=== PATIENT | male | born 1945 | race Caucasian/White ===

== ENCOUNTER → 2016-12-22 | Outpatient (CLI) | payer OTHER ==
[~2016-12-22] MED LIST: DEPO METHYLPREDNISOLONE 40 MG/ML SDV ONE; DEPO METHYLPREDNISOLONE 80 MG/ML SDV ONE; IOPAMIDOL (ISOVUE 370) 100 ML BTL IV ONE; LIDOCAINE 1% 300 MG/30 ML SDV ONE; ROPIVACAINE HCL 150 MG/30 ML INJ ONE
== END ==
LOC: FIMAGING 10:16
PROVIDERS: ATTEND Orthopaedic Surgery
PROC: 3E0U3BZ Introduction of Anesthetic Agent into Joints, Percutaneous Approach (ICD-10-PCS; principal; 2016-12-22)
PROC: 3E0U33Z Introduction of Anti-inflammatory into Joints, Percutaneous Approach (ICD-10-PCS; principal; 2016-12-22)
DX: M16.11 Unilateral primary osteoarthritis, right hip (principal)
CPT/HCPCS: 20610; J1030; J2795; Q9967; J1040

== ENCOUNTER 2017-04-11 10:07 | Inpatient (IN) | payer OTHER ==
--- NOTE | 2017-04-11 07:12 | PDHPUP ---
History & Physical Update H&P update statement: This history and physical update is based on an assessment of the patient which was completed after admission or registration (within 24 hours), but prior to the surgery/procedure. H&P update: H&P reviewed & patient examined, no change in patient's condition since H&P completed
[~2017-04-11 10:07] MED LIST changes: +BUPI/epINEPH/KETOROLAC IU ONE; -DEPO METHYLPREDNISOLONE 40 MG/ML SDV ONE; -DEPO METHYLPREDNISOLONE 80 MG/ML SDV ONE; -IOPAMIDOL (ISOVUE 370) 100 ML BTL IV ONE; -LIDOCAINE 1% 300 MG/30 ML SDV ONE; +ROPIVACAINE 0.2% 80 MG, EPINEPHrine 0.2 MG, KETOROLAC TROMETHAMINE 30 MG in SYRINGE 0 ML IU ONE; -ROPIVACAINE HCL 150 MG/30 ML INJ ONE; +TRANEXAMIC ACID 3,000 MG in NS (SYRINGE) 50 ML IRR ONE; +TRANEXAMIC ACID 3,000 MG/50 ML BAG IRR ONE
[2017-04-11] MEDS ORDERED: LIDOCAINE 1% 2 ML INJ ID PRN (10:17)
[2017-04-11] MEDS ORDERED: ACETAMINOPHEN 325 MG TAB PO ONE (10:17)
[2017-04-11] MEDS ORDERED: FAMOTIDINE 20 MG TAB PO ONE (10:17)
[2017-04-11] MEDS ORDERED: DEXAMETHASONE 4 MG/ML VIAL IVP ONE (10:17)
[2017-04-11] MEDS ORDERED: LR 1,000 ML IV ONE (10:17)
[2017-04-11] MEDS ORDERED: ceFAZolin 2 GM/SWFI 2 GM/20 ML SYR IVP ONE (10:17)
--- NOTE | 2017-04-11 12:02 | PDANEPAE ---
ANE Past Medical History - Cardiovascular History Hx Hypertension: No Hx Arrhythmias: No Hx Chest Pain: No Hx Coronary Artery / Peripheral Vascular Disease: No Hx CHF / Valvular Disease: No Hx Palpitations: No - Pulmonary History Hx COPD: No Hx Asthma/Reactive Airway Disease: No Hx Recent Upper Respiratory Infection: No Hx Oxygen in Use at Home: No Hx Sleep Apnea: No Sleep Apnea Screening Result - Last Documented: Negative - Neurologic History Hx Cerebrovascular Accident: No Hx Seizures: No Hx Dementia: No - Endocrine History Hx Diabetes: No - Renal History Hx Renal Disorders: No Renal History Comment: INCONTINENCE. ERECTILE DYSFUNCTION - Liver History Hx Hepatic Disorders: No - Neurological & Psychiatric Hx Hx Neurological and Psychiatric Disorders: No - Cancer History Hx Cancer: Yes Cancer History Comment: PROSTATE CA- RADICAL PROSTATECTOMY - Congenital Disorder History Hx Congenital Disorders: No - GI History Hx Gastrointestinal Disorders: No - Other Health History Other Health History: NONE - Chronic Pain History Chronic Pain: No - Surgical History Prior Surgeries: BILATERAL KNEE SURGERIES. CATARACT SURGERY BILATERAL. RADICAL PROSTATECTOMY 2004 ANE Review of Systems Review of Systems: - Exercise capacity METS (RN): 5 METS ANE Patient History - Allergies Allergies/Adverse Reactions: No Known Allergies Allergy (Verified 04/02/17 11:57) - Home Medications Home Medications: Docusate Sodium [Colace] 100 mg PO HS 06/24/15 [Last Taken 1 Day Ago ~04/10/17] Ibuprofen [Motrin (*)] 800 mg PO HS 06/24/15 [Last Taken 1 Week Ago ~04/04/17] Melatonin [Melatonin 3 MG (*)] 3 mg PO HS 03/29/17 [Last Taken 1 Day Ago ~] - NPO status NPO Since - Liquids (Date): 04/11/17 NPO Since - Liquids (Time): 08:00 NPO Since - Solids (Date): 04/10/17 NPO Since - Solids (Time): 20:00 - Smoking Hx Smoking Status: Never smoked - Family Anes Hx Family Hx Anesthesia Complications: NONE ANE Labs/Vital Signs - Vital Signs Blood Pressure: 137/97 Heart Rate: 61 Respiratory Rate: 18 O2 Sat (%): 96 Height: 180.34 cm Weight: 88.904 kg ANE Physical Exam - Airway Mallampati Score: Class 2 - ASA Status ASA Status: II ANE Anesthesia Plan Anesthesia Plan: spinal
[2017-04-11] MEDS ORDERED: fentaNYL 100 MCG/2 ML INJ ONE (12:08)
[2017-04-11] MEDS ORDERED: PROPOFOL/EMULSION 500 MG/50 ML BOTTLE IV ONE (12:09)
[2017-04-11] MEDS ORDERED: MIDAZOLAM 2 MG/2 ML VIAL ONE (12:35)
[2017-04-11] MEDS ORDERED: ONDANSETRON 4 MG/2 ML VIAL ONE (12:43)
[2017-04-11] MEDS ORDERED: DIPHENOXYLATE/ATROPINE LOMOTIL 1 TAB PO PRN (12:46)
[2017-04-11] MEDS ORDERED: LACTULOSE 20 GM/30 ML UDCUP PO PRN (12:46)
[2017-04-11] MEDS ORDERED: oxyCODONE IR 5 MG TAB PO PRN (12:46)
[2017-04-11] MEDS ORDERED: CYCLOBENZAPRINE 10 MG TAB PO PRN (12:46)
[2017-04-11] MEDS ORDERED: METOCLOPRAMIDE 10 MG/2 ML VIAL IVP PRN (12:46)
[2017-04-11] MEDS ORDERED: ONDANSETRON 4 MG/2 ML VIAL IVP PRN ×2 (12:46→13:44)
[2017-04-11] MEDS ORDERED: POLYETHYLENE GLYCOL 3350 17 GM PKT PO PRN (12:46)
[2017-04-11] MEDS ORDERED: BISACODYL 10 MG SUPP PR PRN (12:46)
[2017-04-11] MEDS ORDERED: PROMETHAZINE HCL 25 MG/ML INJ IVP PRN (12:46)
[2017-04-11] MEDS ORDERED: PROMETHAZINE HCL 25 MG SUPPR PR PRN (12:46)
[2017-04-11] MEDS ORDERED: diphenhydrAMINE 25 MG CAP PO PRN (12:46)
[2017-04-11] MEDS ORDERED: ONDANSETRON DISINTEGRATING 4 MG TAB PO PRN (12:46)
[2017-04-11] MEDS ORDERED: MAGNESIUM HYDROXIDE 30 ML UDCUP PO PRN (12:46)
[2017-04-11] MEDS ORDERED: LR 1,000 ML IV SCH (13:00)
[2017-04-11] MEDS ORDERED: PHENYLEPHRINE HCL 100 MCG/ML SYR IVP PRN (13:44)
[2017-04-11] MEDS ORDERED: LR 500 ML IV PRN (13:44)
[2017-04-11] MEDS ORDERED: epHEDrine SULFATE 10 MG/ML SYR IVP PRN (13:44)
[2017-04-11] MEDS ORDERED: fentaNYL 100 MCG/2 ML INJ IVP PRN (13:44)
[2017-04-11] MEDS ORDERED: NALOXONE HCL 0.4 MG/ML INJ IVP PRN (13:44)
--- NOTE | 2017-04-11 13:44 | POSTOPPROG ---
Post Op Note Date of Operation: 04/11/17 Surgeon: Vicky Sears Shell Press Operator: jackie sears Anesthesiologist: dr. harris Anesthesia: Spinal Pre-op Diagnosis: right hip OA Post-op Diagnosis: same Indication: right hip pain due to OA that failed conservative measure Procedure: R GAIL ant approach Findings: severe hip OA Inf/Abcess present in the surg proc area at time of surgery?: No EBL: 100-500
--- NOTE | 2017-04-11 13:46 | POSTANESTH ---
Post Anesthetic Evaluation Cardiovascular Status: Normal, Stable Respiratory Status: Normal, Stable Level of Consciousness/Mental Status: Can Participate in Eval Pain Control: Adequate, Prn Tx Ordered Nausea/Vomiting Control: Adequate, Prn Tx Ordered Complications Possibly Related to Anesthesia: None Noted
[2017-04-11] MEDS ORDERED: ceFAZolin 2 GM/DEXTROSE 100 ML IV SCH (14:00)
[2017-04-11] MEDS: ACETAMINOPHEN 325 MG TAB PO SCH ×2 (17:25→23:54)
[2017-04-11] MEDS: ceFAZolin 2 GM/SWFI 2 GM/20 ML SYR IVP SCH (17:25)
--- NOTE | 2017-04-11 18:09 | GOP ---
[f rep st] OPERATIVE REPORT DATE OF OPERATION: 04/11/2017 SURGEON: Eveline Talbert MD ALMOND BLANCHER: TAMMI Ryder. ANESTHESIA: Spinal. PREOPERATIVE DIAGNOSIS: Right hip osteoarthritis. POSTOPERATIVE DIAGNOSIS: Right hip osteoarthritis. PROCEDURE PERFORMED: Right total hip arthroplasty with x-ray. FINDINGS: ESTIMATED BLOOD LOSS: 200 cc. INDICATIONS: The patient has progressively worsening arthritis of the hip which has failed medical m anagement. The patient understands the treatment options including continued non-operative care and has selected surgical intervention. The patient has decided to undergo total hip arthroplasty via th e direct anterior approach, understanding the risks of the procedure including, but not limited to, n eurovascular injury, infection, persistent pain, component wear and loosening, deep venous thrombosis , pulmonary embolism, limb length inequality, hip instability (including dislocation), and intra-oper ative fractures. DESCRIPTION OF PROCEDURE: After proper identification of the patient including verification and fide ing the surgical site, the patient was brought to the operating room and placed in the supine positio n. All bony prominences were well padded. Anesthesia was induced without complication and intraveno us prophylactic antibiotics were administered prior to skin incision. The operative leg was placed in the Trumpf Arch table extension and the well leg in a Yellofin leg ho lder. The patient was prepped and draped in the usual sterile fashion. The C-arm was draped for int ra-operative fluoroscopy to check acetabular position, femoral component position including leg lengt h and femoral offset. Attention was then drawn to surgical exposure of the hip. An incision was made with a #10 Bard Joel r blade starting 3 cm lateral and 3 cm distal to the anterior superior iliac spine measuring 8-10 cm and coursing distally toward the greater trochanter. The skin and subcutaneous tissues were divided sharply down to the fascia ayad. The fascia ayad was incised in line with the skin incision exposing the underlying tensor fascia ayad muscle. The muscle was bluntly elevated from the fascia and the f irst extracapsular Cobra retractor was placed laterally at the junction of the superior femoral neck and greater trochanter. The lateral femoral circumflex vessels were identified, cauterized, and divi ded with the Aquamantys bipolar cautery. The deep investing fascia of the TFL was divided to allow p luz [place]ina mobilization of the muscle preventing damage during the retraction. The reflected head of the rectus femoris muscle was elevated off the anterior hip capsule and a medial Cobra retractor was plac ed just proximal to the lesser trochanter. The anterior capsulotomy was made sharply from the superolateral acetabulum to the saddle junction of the superior femoral neck and greater trochanter, then coursing inferomedial towards the lesser troc hanter. The retractors were then placed in the intracapsular position for femoral neck osteotomy. C orresponding to pre-operative templating, the osteotomy was made with the oscillating saw carefully p rotecting the greater trochanter and soft tissues. The femoral head was removed from the acetabulum with a corkscrew and confirmed to be severely arthritic with exposed bone, deformity and osteophytes. Similar findings were confirmed in the acetabulum. The Arch table extension was then placed in 40 degrees external rotation. Attention was then drawn to the acetabular preparation. After placement of the anterior and posterio r Cobra retractors outside the labrum and intracapsular, the circumferential labrum was removed sharp ly. The foveal contents were then removed and hemostasis obtained with cautery. The first reamer selected was sized using the removed femoral head. Reaming began with medialization and then commenced in 2 mm increments at 45 degrees of abduction and 15 degrees of anteversion using fluoroscopic navigation. Reaming ceased 1 mm less than the definitive acetabular component and johnson esponded to the pre-operative templating. The final acetabular component was inserted using fluorosc opy to achieve proper orientation yielding excellent purchase and stability in the acetabulum. The f inal acetabular liner was then placed and its seating confirmed. Attention was then turned to the femur. The Arch table extension was placed in extension and adducti on, delivering the osteotomized femoral neck into the wound. A 2-pronged femoral elevator was placed at the calcar and another at the tip of the greater trochanter. The posterolateral capsule was rele ased with cautery allowing mobilization of the femur lateral and anterior for preparation. The exter nal rotators were visualized and preserved. A curette and rongeur were used to open the starting poi nt for broaching. Serial broaching started with the #0 broach and ended with the broach that exhibit ed excellent fit in the proximal femur. A change in pitch during mallet strikes was accompanied by t he inability to advance the broach any further. The trial reduction was performed and fluoroscopic n avigation was utilized to check limb length. Adjustments were made to equalize limb length according ly. After the final trials were accepted they were removed and the wound was copiously lavaged. The femo ral component was seated to the same depth as the final broach and the femoral head was impacted onto the clean trunnion. The hip was then reduced for the final time and once more fluoroscopy was used to check that limb length equality was achieved. The wound was irrigated and closed in layers, the fascia ayad with 2-0 Quill, the subcutaneous tissue with 2-0 Quill, and the skin with Dermabond. Sterile dressings were applied. Final sharps and spon ge counts were accurate. The patient was then transferred to a hospital bed and brought to the [facility] room in stable condition. IMPLANTS: Accolade II size 7 at 127, acetabular component a 56 mm titanium. The liner is a Trident X 336 mm. The head is a Biolox Delta 36 mm, +2.5. /[id number]/MODL
[2017-04-11] MEDS: SENNOSIDES/DOCUSATE SODIUM TAB PO SCH (22:41)
[2017-04-11] MEDS: ASPIRIN 81 MG CHEWABLE TAB PO SCH (22:41)
[2017-04-11] MEDS: TEMAZEPAM 15 MG CAP PO PRN ×2 (22:41→23:56)
[2017-04-11] MEDS: FAMOTIDINE 20 MG TAB PO SCH (23:20)
[2017-04-12] MEDS: ceFAZolin 2 GM/SWFI 2 GM/20 ML SYR IVP SCH (01:42)
[2017-04-12] MEDS: ACETAMINOPHEN 325 MG TAB PO SCH (05:49)
[2017-04-12 08:11] VITALS: BP 138/79; PULSE 72; RESP 16; TEMP 98
[2017-04-12 08:59] VITALS: O2SAT 96
[2017-04-12] MEDS: ASPIRIN 81 MG CHEWABLE TAB PO SCH (09:06)
[2017-04-12] MEDS: SENNOSIDES/DOCUSATE SODIUM TAB PO SCH (09:06)
[2017-04-12] MEDS: FAMOTIDINE 20 MG TAB PO SCH (09:07)
--- NOTE | 2017-04-12 10:02 | SOAPPROG ---
SOAP Progress Note Assessment/Plan: Assessment: Patient is doing well POD 1 s/p R GAIL Pain management: pain is well controlled on oral pain meds. VTE ppx: recommend aspirin 81 mg BID for 4 weeks, cont QUENTIN and SCDs Anemia: level is expected initially postop. Asymptomatic. Continue to monitor D/c planning: d/c to home today pending release from PT Plan: 04/12/17 10:02 Subjective: Billy is doing well today, denies SOB ,chest pain and N/V Objective: Vital Signs Temp Pulse Resp BP Pulse Ox 36.7 C 72 16 138/79 H 96 04/12/17 08:00 04/12/17 08:00 04/12/17 08:00 04/12/17 08:00 04/12/17 08:20 Laboratory Results 04/12/17 04:22 04/11/17 04/12/17 04/13/17 05:59 05:59 05:59 Intake Total 2955 Output Total 1525 Balance 1430 RLE: incision dressing is clean and dry, NVI, +pf/df ICD10 Worksheet Patient Problems: Problems Problem Status Onset Primary localized osteoarthritis of right hip Acute Urinary incontinence Acute
--- NOTE | 2017-04-12 10:19 | PDMN ---
Medical Necessity Medical necessity: Pt meets IP criteria; [facility] IP only surgery CPT 94034 R GAIL
--- NOTE | 2017-04-12 13:39 | GDS ---
[f rep st] DISCHARGE SUMMARY ADMISSION DIAGNOSIS: Right hip osteoarthritis. DISCHARGE DIAGNOSIS: Right hip osteoarthritis PROCEDURE: Right total hip arthroplasty. VTE PROPHYLAXIS: Recommend aspirin 81 mg twice daily for 4 weeks. PLAN: Follow up as scheduled Dr. Talbert's office. /[id number]/MODL
== END 2017-04-12 10:43 | disposition home or self-care (01) | DRG 470 ==
LOC: F3N 10:07
PROVIDERS: ADMIT Orthopaedic Surgery; ATTEND Orthopaedic Surgery
PROC: 0SR904Z Replacement of Right Hip Joint with Ceramic on Polyethylene Synthetic Substitute, Open Approach (ICD-10-PCS; principal; 2017-04-11 12:15)
DX: M16.11 Unilateral primary osteoarthritis, right hip (principal); R32 Unspecified urinary incontinence; N52.9 Male erectile dysfunction, unspecified; Z90.79 Acquired absence of other genital organ(s); Z85.46 Personal history of malignant neoplasm of prostate
CPT/HCPCS: 97116-GP; 97161-GP; 97165-GO; G8978-GP-CJ; G8979-GP-CI; G8980-GP-CI; G8987-GO-CI; G8988-GO-CI; G8989-GO-CI; J0171; J0690; J1100; J1200; J1885; J2250; J2370; J2405; J2704; J3010

== ENCOUNTER 2017-05-03 12:43 | Inpatient (IN) | payer OTHER ==
[2017-05-03] MEDS ORDERED: DEXAMETHASONE 4 MG/ML VIAL IVP ONE (13:04)
[2017-05-03] MEDS ORDERED: ceFAZolin 2 GM/SWFI 2 GM/20 ML SYR IVP ONE (13:04)
[2017-05-03] MEDS ORDERED: ROPIVACAINE 0.2% 80 MG, EPINEPHrine 0.2 MG, KETOROLAC TROMETHAMINE 30 MG in SYRINGE 0 ML IU ONE (13:04)
[2017-05-03] MEDS ORDERED: TRANEXAMIC ACID 3,000 MG in NS (SYRINGE) 50 ML IRR ONE (13:04)
[2017-05-03] MEDS ORDERED: BUPI/epINEPH/KETOROLAC IU ONE (13:30)
[2017-05-03] MEDS ORDERED: LR 1,000 ML IV SCH ×2 (13:30→22:00)
[2017-05-03] MEDS ORDERED: TRANEXAMIC ACID 3,000 MG/50 ML BAG IRR ONE (15:28)
--- NOTE | 2017-05-03 15:52 | PDANEPAE ---
ANE History of Present Illness 71 year for right total hip revision. ANE Past Medical History - Cardiovascular History Hx Hypertension: No Hx Arrhythmias: No Hx Chest Pain: No Hx Coronary Artery / Peripheral Vascular Disease: No Hx CHF / Valvular Disease: No Hx Palpitations: No - Pulmonary History Hx COPD: No Hx Asthma/Reactive Airway Disease: No Hx Recent Upper Respiratory Infection: No Hx Oxygen in Use at Home: No Hx Sleep Apnea: No Sleep Apnea Screening Result - Last Documented: Negative - Neurologic History Hx Cerebrovascular Accident: No Hx Seizures: No Hx Dementia: No - Endocrine History Hx Diabetes: No Hypothyroid: No Hyperthyroid: No Obesity: no - Renal History Hx Renal Disorders: Yes Renal History Comment: INCONTINENCE. ERECTILE DYSFUNCTION - Liver History Hx Hepatic Disorders: No - Neurological & Psychiatric Hx Hx Neurological and Psychiatric Disorders: No - Cancer History Hx Cancer: Yes Cancer History Comment: PROSTATE CA- RADICAL PROSTATECTOMY - Congenital Disorder History Hx Congenital Disorders: No - GI History Hx Gastrointestinal Disorders: No - Other Health History Other Health History: NONE - Chronic Pain History Chronic Pain: No - Surgical History Prior Surgeries: BILATERAL KNEE SURGERIES. CATARACT SURGERY BILATERAL. RADICAL PROSTATECTOMY 2004 ANE Review of Systems Review of systems is: negative Review of Systems: - Exercise capacity Exercise capacity: >=4 METS ANE Patient History - Allergies Allergies/Adverse Reactions: No Known Allergies Allergy (Verified 04/02/17 11:57) - Home Medications Home medications: home medication list seen and reviewed Home Medications: Acetaminophen [Tylenol 325mg (*)] 650 mg PO Q6HRS PRN 05/03/17 [Last Taken 05/02] - NPO status NPO Status: no food or drink >8 hours NPO Since - Liquids (Date): 05/03/17 NPO Since - Liquids (Time): 12:00 NPO Since - Solids (Date): 05/03/17 NPO Since - Solids (Time): 07:30 - Anes Hx Anes Hx: no prior problems - Smoking Hx Smoking Status: Never smoked Marijuana use: No - Alcohol Use Alcohol Use: Rarely - Family Anes Hx Family Anes Hx: neg - N/A Family Hx Anesthesia Complications: NONE ANE Labs/Vital Signs - Vital Signs Vital Signs: reviewed preoperatively; see RN documention for details Blood Pressure: 153/89 Heart Rate: 66 Respiratory Rate: 16 O2 Sat (%): 97 Height: 180.34 cm Weight: 88.451 kg ANE Physical Exam - Airway Neck exam: FROM Mallampati Score: Class 2 Mouth exam: normal dental/mouth exam - Pulmonary Pulmonary: no respiratory distress - Cardiovascular Cardiovascular: regular rate and rhythym - ASA Status ASA Status: II ANE Anesthesia Plan Anesthesia Plan: GA w LMA, MAC, spinal (GA with LMA as "back-up plan") Total IV Anesthesia: No
[2017-05-03] MEDS ORDERED: LR 1,000 ML IV ONE (15:59)
[2017-05-03] MEDS ORDERED: MIDAZOLAM 2 MG/2 ML VIAL IVP ONE (16:00)
[2017-05-03] MEDS ORDERED: DEXAMETHASONE 4 MG/ML VIAL ONE ×2 (16:04→16:47)
[2017-05-03] MEDS ORDERED: ceFAZolin 2 GM/SWFI 20 ML SYR IVP ONE (16:04)
[2017-05-03] MEDS ORDERED: PROPOFOL/EMULSION 500 MG/50 ML BOTTLE IV ONE ×2 (16:09→16:57)
--- NOTE | 2017-05-03 16:15 | PDGENHP ---
History and Physical History and Physical: Pt with Right periprosthetic femur fx occurred last week, transferred from [place] last night pain in right hip and inability to bear wt PMH see prior H&P Meds see prior DC summary PE: VSS RLE: shortened ER NVI, pain with motion \ XR shows R periprosthetic femur fx AP Rec rev R GAIL femoral component risks and benefits discussed informed consent obtained will proceed with surgery
[2017-05-03] MEDS ORDERED: ONDANSETRON 4 MG/2 ML VIAL ONE (16:47)
[2017-05-03] MEDS ORDERED: PHENYLEPHRINE HCL 100 MCG/ML SYR ONE (17:13)
[2017-05-03] MEDS ORDERED: LR 500 ML IV PRN (17:18)
[2017-05-03] MEDS ORDERED: NALOXONE HCL 0.4 MG/ML INJ IVP PRN (17:18)
[2017-05-03] MEDS ORDERED: ONDANSETRON 4 MG/2 ML VIAL IVP PRN ×2 (17:18→21:49)
[2017-05-03] MEDS ORDERED: LABETALOL HCL 5 MG/ML 20 ML MDV IVP PRN (17:18)
[2017-05-03] MEDS ORDERED: fentaNYL 100 MCG/2 ML INJ IVP PRN (17:18)
[2017-05-03] MEDS ORDERED: epHEDrine SULFATE 10 MG/ML SYR IVP PRN (17:18)
[2017-05-03] MEDS ORDERED: HYDROmorphONE/DILAUDID 1 MG/ML INJ IVP PRN (17:18)
[2017-05-03] MEDS ORDERED: PHENYLEPHRINE HCL 100 MCG/ML SYR IVP PRN (17:18)
[2017-05-03] MEDS ORDERED: PROMETHAZINE HCL 25 MG/ML INJ IVP PRN ×2 (17:18→21:49)
--- NOTE | 2017-05-03 18:16 | POSTOPPROG ---
Post Op Note Date of Operation: 05/03/17 Surgeon: Vicky Talbert Tractor Operator Battery: Eileen Talbert PAc Anesthesiologist: [place] Anesthesia: Spinal Pre-op Diagnosis: R periprosthetic femur fx Post-op Diagnosis: same Indication: pain Procedure: Rev R femoral stem GAIL Findings: fx femur Inf/Abcess present in the surg proc area at time of surgery?: No EBL: 100-500
[2017-05-03] MEDS ORDERED: LABETALOL HCL 5 MG/ML 20 ML MDV ONE (19:03)
--- NOTE | 2017-05-03 19:09 | GOP ---
[f rep st] OPERATIVE REPORT DATE OF OPERATION: 05/03/2017 SURGEON: Eveline Talbert MD FLAT LOCK OPERATOR: Eileen Talbert PA-C ANESTHESIA: Spinal. PREOPERATIVE DIAGNOSIS: Right periprosthetic femur fracture. POSTOPERATIVE DIAGNOSIS: Right periprosthetic femur fracture. PROCEDURE PERFORMED: Revision of right hip arthroplasty femoral components. FINDINGS: ESTIMATED BLOOD LOSS: 200 mL. INDICATIONS: Patient is a 71-year-old gentleman who underwent a right total hip arthroplasty approximately 3 weeks ago. Patient had traveled to [place] and noted increasing pain over the last week ambulating and bearing weight. Was seen in the clinic today and identified was a right periprosthetic femur fracture. Risks and benefits were explained to the patient, including bleeding , infection, damage to nerves and vessels, need for further surgery, risks of dislocation, fracture, and leg length discrepancy was also discussed as well as rare complications such as blood clots, blood clots going to his lungs, stroke, heart attack, and . Informed consent was obtained. DESCRIPTION OF PROCEDURE: Patient was identified in the preoperative holding area. His right lower extremity was marked, and then he was brought back to the operating room. After induction of anesthesia, he was positioned on the arch table. He was then prepped and draped in the usual sterile fashion, and time-out was taken confirming the patient, laterality, procedures, allergies, antibiotic status, and implant availability. We then proceeded through a prior anterior incision through the tensor fascia ayad and sartorius interval. Identified the joint area. Fluid was able to be expressed. We identified the fracture site. Hip was dislocted, and the femoral stem was removed. Cables were then placed around the fracture components of the femur. 2.0 mm Dahlmeier cables were placed inferior to the lesser trochanter. There was some comminution on the anterior portion of the femoral neck. We were able to broach and found an excellent fit with a size 8 femoral stem. A size 8 femoral stem with +2.5 mm Delta ceramic head was placed. Hip was reduced, copiously irrigated, and then the incisions were closed in layers. The patient was awakened and brought to PACU in good condition with a well-perfused limb. PLAN: The patient to be touch-down weight-bearing. He will be observed on the floor. /[id number]/MODL MTDD
--- NOTE | 2017-05-03 19:43 | POSTANESTH ---
Post Anesthetic Evaluation Cardiovascular Status: Normal, Stable, Similar to Pre-Op Cond Respiratory Status: Normal, Stable, Similar to Pre-op Cond. Level of Consciousness/Mental Status: Can Participate in Eval, Alert and Oriented Pain Control: Adequate, Prn Tx Ordered Nausea/Vomiting Control: Adequate, Prn Tx Ordered Complications Possibly Related to Anesthesia: None Noted
[2017-05-03] MEDS ORDERED: POLYETHYLENE GLYCOL 3350 17 GM PKT PO PRN (21:49)
[2017-05-03] MEDS ORDERED: MAGNESIUM HYDROXIDE 30 ML UDCUP PO PRN (21:49)
[2017-05-03] MEDS ORDERED: PROMETHAZINE HCL 25 MG SUPPR PR PRN (21:49)
[2017-05-03] MEDS ORDERED: ONDANSETRON DISINTEGRATING 4 MG TAB PO PRN (21:49)
[2017-05-03] MEDS ORDERED: DIPHENOXYLATE/ATROPINE LOMOTIL 1 TAB PO PRN (21:49)
[2017-05-03] MEDS ORDERED: LACTULOSE 20 GM/30 ML UDCUP PO PRN (21:49)
[2017-05-03] MEDS ORDERED: diphenhydrAMINE 25 MG CAP PO PRN (21:49)
[2017-05-03] MEDS ORDERED: METOCLOPRAMIDE 10 MG/2 ML VIAL IVP PRN (21:49)
[2017-05-03] MEDS ORDERED: BISACODYL 10 MG SUPP PR PRN (21:49)
[2017-05-03] MEDS ORDERED: CYCLOBENZAPRINE 10 MG TAB PO SCH (22:30)
[2017-05-03] MEDS ORDERED: TEMAZEPAM 15 MG CAP PO SCH (22:30)
[2017-05-03] MEDS: oxyCODONE IR 5 MG TAB PO PRN (22:42)
[2017-05-03] MEDS: FAMOTIDINE 20 MG TAB PO SCH (22:43)
[2017-05-03] MEDS: CYCLOBENZAPRINE 10 MG TAB PO PRN (22:43)
[2017-05-03] MEDS: TEMAZEPAM 15 MG CAP PO PRN (22:47)
[2017-05-03] MEDS: ACETAMINOPHEN 325 MG TAB PO SCH (23:48)
[2017-05-04] MEDS: oxyCODONE IR 5 MG TAB PO PRN ×5 (03:51→23:57)
[2017-05-04] MEDS: ACETAMINOPHEN 325 MG TAB PO SCH ×4 (05:23→23:57)
[2017-05-04] MEDS: ceFAZolin 2 GM/SWFI 2 GM/20 ML SYR IVP SCH ×2 (07:01→07:02)
[2017-05-04] MEDS: CYCLOBENZAPRINE 10 MG TAB PO PRN ×2 (07:26→23:57)
--- NOTE | 2017-05-04 08:03 | PDMN ---
Medical Necessity Medical necessity: Pt meets IP criteria per PA; est los >2 mn for eval/tx of R periprosthetic femur fx w/pain & inability to bear weight; admit for R GAIL revision, IVFs, pain management & therapies; hx recent R GAIL; per H&P & order
[2017-05-04] MEDS: FAMOTIDINE 20 MG TAB PO SCH ×2 (08:24→21:14)
[2017-05-04] MEDS: SENNOSIDES/DOCUSATE SODIUM TAB PO SCH ×2 (08:25→21:48)
[2017-05-04] MEDS ORDERED: ASPIRIN 81 MG CHEWABLE TAB PO SCH (09:00)
--- NOTE | 2017-05-04 10:34 | SOAPPROG ---
<Eileen Talbert - Last Filed: 05/04/17 10:30> SOAP Progress Note Assessment/Plan: Assessment: Billy is POD 1 s/p R GAIL revision and ORIF due to periprosthetic femur fracture pain control: pain is well controlled VTE ppx: currently on ASA 81 mg BID. ordered STAT ultrasound of right lower extremity to rule out DVT as persistent edema in foot. call with results Anemia: level expected initially postop. continue to monitor Activity precautions: TTWB with crutches or walker, no active hip flexion and no hip ABduction for 6 weeks D/c planning: d/c to home with support of today vs tomorrow pending ultrasound results and patient and his family's comfort level regarding activity precautions. May d/c to home later today if comfortable, but welcome to stay another night if patient would prefer to work with PT more. Plan: 05/04/17 10:30 Subjective: pain well controlled, denies SOB, chest pain and N/V. states right foot has been swollen for past three weeks Objective: Vital Signs Temp Pulse Resp BP Pulse Ox 36.6 C 65 16 125/66 H 93 05/04/17 07:37 05/04/17 07:37 05/04/17 07:37 05/04/17 07:37 05/04/17 07:37 Laboratory Results 05/04/17 04:20 05/03/17 05/04/17 05/05/17 05:59 05:59 05:59 Intake Total 1840 Output Total 875 Balance 965 RLE: incision dressing is clean and dry, NVI, 2+ edema right foot, +pf/df ICD10 Worksheet Patient Problems: Problems Problem Status Onset Primary localized osteoarthritis of right hip Acute Urinary incontinence Acute <Vicky Talbert - Last Filed: 05/04/17 12:47> SOAP Progress Note Assessment/Plan: Assessment: Duplex US showed chronic VTE and possible mew VTE willswitch to coumadinand lovenox Plan: 05/04/17 12:46 Objective: Vital Signs Temp Pulse Resp BP Pulse Ox 36.8 C 67 16 104/65 96 05/04/17 11:24 05/04/17 11:24 05/04/17 11:24 05/04/17 11:24 05/04/17 11:24 Laboratory Results 05/04/17 04:20 05/03/17 05/04/17 05/05/17 05:59 05:59 05:59 Intake Total 1840 Output Total 875 Balance 965
[2017-05-04] MEDS ORDERED: WARFARIN SODIUM 5 MG TAB PO SCH (16:00)
--- NOTE | 2017-05-04 16:05 | ASMTCMCOM ---
CM Note CM Note Notes: Pt s/p hip revision and ORIF. Pt had elective R GAIL 04/11/17. Pt lives with spouse. OT rec home, PT rec home/outpatient. Anticipate pt will d/c when medically stable. No CM d/c needs identified at this time, CM available for changes/needs. Date Signed: 05/04/2017 04:04 PM Electronically Signed By:GOLD Hager
[2017-05-04] MEDS: TEMAZEPAM 15 MG CAP PO PRN ×2 (21:14→23:57)
[2017-05-04] MEDS: ENOXAPARIN 30 MG/0.3 ML SYR SC SCH (21:15)
[2017-05-05] MEDS: oxyCODONE IR 5 MG TAB PO PRN ×2 (01:51→11:00)
[2017-05-05 05:20] LABS: INR 1.01 (0.83-1.16); PROTIME(PATIENT) 13.5 SEC (12.0-15.0)
[2017-05-05] MEDS: ACETAMINOPHEN 325 MG TAB PO SCH ×2 (06:35→12:35)
[2017-05-05 08:01] VITALS: BP 143/68
[2017-05-05] MEDS: FAMOTIDINE 20 MG TAB PO SCH (08:28)
[2017-05-05] MEDS: SENNOSIDES/DOCUSATE SODIUM TAB PO SCH (08:28)
[2017-05-05] MEDS: ENOXAPARIN 30 MG/0.3 ML SYR SC SCH (08:35)
--- NOTE | 2017-05-05 13:32 | SOAPPROG ---
SOAP Progress Note Assessment/Plan: Assessment: Billy is POD 2 s/p R GAIL revision and ORIF due to periprosthetic femur fracture pain control: pain is well controlled VTE ppx: coumadin and lovenox. INR today 1.01. chronic DVT Anemia: level expected initially postop. continue to monitor Activity precautions: TTWB with crutches or walker, no active hip flexion and no hip ABduction for 6 weeks D/c planning: d/c to home Plan: 05/04/17 10:30 05/05/17 13:30 Subjective: ready for d/c Objective: Vital Signs Temp Pulse Resp BP Pulse Ox 36.3 C 77 16 143/68 H 95 05/05/17 08:00 05/05/17 08:00 05/05/17 08:00 05/05/17 08:00 05/05/17 08:00 Laboratory Results 05/05/17 04:30 05/04/17 05/05/17 05/06/17 05:59 05:59 05:59 Intake Total 1840 1450 850 Output Total 875 500 Balance 965 950 850 PT 13.5 SEC (12.0-15.0) 05/05/17 04:30 INR 1.01 (0.83-1.16) 05/05/17 04:30 RLE: incision dressing clean ICD10 Worksheet Patient Problems: Problems Problem Status Onset Delia-prosthetic femoral shaft fracture Acute Primary localized osteoarthritis of right hip Acute Urinary incontinence Acute
--- NOTE | 2017-05-05 13:57 | ASDISCHSUM ---
Discharge Information Plan Status:Home with No Needs Medically Cleared to Leave:05/05/2017 Discharge Date:05/05/2017 01:53 PM CM D/C Disposition:Home, Routine, Self-Care ADT D/C Disposition:Home, Routine, Self-Care Projected Discharge Date:05/05/2017 01:53 PM Transportation at D/C:Family Discharge Delay Reason: Follow-Up Date:05/05/2017 01:53 PM Discharge Slot: Final Diagnosis: Placement Information Patient Contact Information Contact Name:TY Relationship: Address:[address] Work Phone: City:[place] Phone: State/Zip Code:[place] [address] Email: Financial Information Financial Class:Medicare Primary Plan Desc:MEDICARE INPATIENT Primary Plan Number:[id number] Secondary Plan Desc:JOSE SULLIVAN O [facility] Secondary Plan Number:[id number] Assessment Information BC CM Progress Note CM Note CM Note Notes: Pt s/p hip revision and ORIF. Pt had elective R GAIL 04/11/17. Pt lives with spouse. OT rec home, PT rec home/outpatient. Anticipate pt will d/c when medically stable. No CM d/c needs identified at this time, CM available for changes/needs. Date Signed: 05/04/2017 04:04 PM Electronically Signed By:GOLD Hager Case Management Discharge Plan Note Case Management Discharge Discharge Order Complete? Answers: Yes Patient to Obtain Answers: via Family Medications Transportation Arranged Answers: Family/Friends Discharge Comments Notes: Pt is discharging home today with no CM needs. Date Signed: 05/05/2017 01:56 PM Electronically Signed By:GOLD Estrada Intervention Information Intervention Type:*Incorrect Registration Date of Service:05/03/2017 03:50 PM Patient Type:Observation Staff Member:ABRAM Larry, Melissa Hours: Discipline: Severity: Comment: Intervention Type:*IM-Signed Date of Service:05/04/2017 03:19 PM Patient Type:Inpatient Staff Member:Brisa Zuniga Hours: Discipline: Severity: Comment:
--- NOTE | 2017-05-05 14:01 | ASMTLACE ---
LACE Length of stay for Answers: 2 days current admission Acuity / Level of Answers: Yes Care: Did the patient have an inpatient admission? Comorbidities - select Answers: Other Notes: Hx prostate cancer all that apply # of Emergency department Answers: 0 visits in the last 6 months Score: 6 Date Signed: 05/05/2017 02:01 PM Electronically Signed By:GOLD Estrada
--- NOTE | 2017-05-29 19:06 | GDS ---
[f rep st] DISCHARGE SUMMARY ADMISSION DIAGNOSIS: Right femoral periprosthetic fracture. DISCHARGE DIAGNOSIS: Right femoral periprosthetic fracture. PROCEDURE: Right total hip arthroplasty revision and open reduction internal fixation due to peripro sthetic femur fracture. VTE PROPHYLAXIS: Recommend coumadin due to chronic versus acute new DVT discovered in the hospital. BRIEF DESCRIPTION OF HOSPITAL STAY: Patient was admitted for an elective joint arthroplasty. The pa brandonnt tolerated the procedure well and has passed physical therapy. The patient was given appropriat e antibiotic prophylaxis and venous thromboembolism prophylaxis. The patient's pain was well control led on oral pain medication, patient was holding down food, and had urinated. Decision was made to d ischarge the patient. The patient was given post-operative prescriptions pre-operatively. DISCHARGE PLANNING: To home with support. Follow up with Dr. Talbert's office in a week /[id number]/MODL
== END 2017-05-05 13:53 | disposition home or self-care (01) | DRG 468 ==
LOC: F3N 12:45 → OBSVTOIN 13:06
PROVIDERS: ADMIT Orthopaedic Surgery; ATTEND Orthopaedic Surgery
PROC: 0QS604Z Reposition Right Upper Femur with Internal Fixation Device, Open Approach (ICD-10-PCS; principal; 2017-05-03 16:00)
PROC: 0SRR03Z Replacement of Right Hip Joint, Femoral Surface with Ceramic Synthetic Substitute, Open Approach (ICD-10-PCS; principal; 2017-05-03 16:00)
PROC: 0SP90JZ Removal of Synthetic Substitute from Right Hip Joint, Open Approach (ICD-10-PCS; principal; 2017-05-03 16:00)
DX: M97.01XA Periprosthetic fracture around internal prosthetic right hip joint, initial encounter (principal)
CPT/HCPCS: 97116-GP; 97162-GP; 97165-GO; 97530-GO; 97530-GP; 97535-GO; C1713; G8978-GP-CK; G8979-GP-CI; G8979-GP-CJ; G8980-GP-CI; G8987-GO-CI; G8987-GO-CJ; G8988-GO-CI; G8989-GO-CI; J0171; J0690; J1100; J1650; J1885; J2250; J2370; J2405; J2704; J2795

== ENCOUNTER → 2017-06-20 | Outpatient (CLI) | payer OTHER | LOC: CIMAGING 10:17 | PROVIDERS: ATTEND Orthopaedic Surgery | DX: I82.431 Acute embolism and thrombosis of right popliteal vein (principal); Z96.649 Presence of unspecified artificial hip joint | CPT/HCPCS: 93971-PO ==